=== PATIENT | female | born 1955 | race Two or more races ===

== ENCOUNTER 2016-06-14 22:58 | Inpatient (IN) | payer MEDICAID, OTHER ==
[~2016-06-14] VITALS: Ht 172.7 cm; Wt 95.3 kg
[2016-06-14] MEDS ORDERED: CATAPRES0.1 MG ORAL (23:06)
[2016-06-14] MEDS ORDERED: CARVEDILOL3.125 MG ORAL (23:06)
[2016-06-14] MEDS ORDERED: DIGOXIN0.25 MG/5 GT (23:06)
[2016-06-14] MEDS ORDERED: FUROSEMIDE20 M1 ORAL (23:06)
[2016-06-14] MEDS ORDERED: Diltiazem 25mg/5ml IV ONE (23:30)
[2016-06-14 23:34] VITALS: BP 151/111
[2016-06-14 23:36] LABS: BASOPHILS % (AUTO) 1.2 % (0.0-2.0); EOSINOPHILS % (AUTO) 1.5 % (0.0-3.0); LYMPHOCYTES % (AUTO) 24.7 % (20.0-45.0); MEAN CORPUSCULAR HEMOGLOBIN 24.4 PG (27.0-31.0); MEAN CORPUSCULAR HGB CONC 30.2 G/DL (32.0-36.0); MEAN CORPUSCULAR VOLUME 81 FL (80-99); MEAN PLATELET VOLUME 8.2 FL (6.5-10.1); MONOCYTES % (AUTO) 8.5 % (1.0-10.0); PLATELET COUNT 248 K/UL (150-450); RED CELL DISTRIBUTION WIDTH 17.7 % (11.6-14.8); WHITE BLOOD COUNT 5.6 K/UL (4.8-10.8)
[2016-06-14 23:52] LABS: ALANINE AMINOTRANSFERASE 23 U/L (3-33); ANION GAP 14 (5-15); ASPARTATE AMINO TRANSFERASE 19 U/L (5-40); CALCIUM 8.8 mg/dL (8.6-10.2); CARBON DIOXIDE 23 mEQ/L (20-30); CHLORIDE 103 mEQ/L (98-107); CREATININE 1.1 mg/dL (0.5-0.9); GLOMERULAR FILTRATION RATE 50.8 mL/min (>60); HEMOLYSIS 4; POTASSIUM 4.1 mEQ/L (3.4-4.9); SODIUM 140 mEQ/L (135-145); TOTAL PROTEIN 6.9 g/dL (6.6-8.7); TROPONIN I < 0.30 ng/mL (<=0.30)
[2016-06-15] VITALS (7 sets, daily range): BP systolic 137–155; BP diastolic 83–109
[2016-06-15 00:02] LABS: CKMB < 1.5 ng/mL (< 3.8)
[2016-06-15] MEDS ORDERED: Diltiazem 25mg/5ml IV ONE ×2 (01:15→03:45)
[2016-06-15] MEDS ORDERED: DuoNeb 0.5-3(2.5)mg/3ml neb HHN PRN (02:30)
[2016-06-15] MEDS ORDERED: Nitroglycerin Subl 0.4mg tab (Bottle Of 25) SL ONE (02:30)
--- NOTE | 2016-06-15 02:42 | Emergency Room Report ---
History of Present Illness General Chief Complaint: Chest Pain Source: Patient Present Illness HPI Patient is a 60-year-old female who presented for increased chest pain shortness of breath gradual onset of the past 2 days. The patient has a past history of atrial fibrillation and is currently taking Xarelto. The patient had no loss of consciousness. Allergies: Coded Allergies: No Known Allergies (Unverified , 06/14/16) Patient History Last Menstrual Period: n/a Reviewed Nursing Documentation: PMH: Agreed, PSxH: Agreed Nursing Documentation-PMH Past Medical History: No History, Except For Hx Hypertension: Yes Physical Exam Vital Signs Date Time Temp Pulse Resp B/P Pulse Ox O2 Delivery O2 Flow Rate FiO2 06/14/16 23:00 98.2 90 18 185/120 98 06/14/16 23:34 Nasal Cannula 2.0 Sp02 EP Interpretation: reviewed, normal General Appearance: normal inspection, well appearing, no apparent distress, alert, obese Head: atraumatic ENT: normal ENT inspection, hearing grossly normal, normal voice Neck: normal inspection, full range of motion, supple, no bony tend Respiratory: normal inspection, lungs clear, normal breath sounds, no respiratory distress, no retraction, no wheezing Cardiovascular #1: no edema, irregularly irregular Gastrointestinal: normal inspection, normal bowel sounds, non tender, soft, no guarding, no hernia Genitourinary: no CVA tenderness Musculoskeletal: normal inspection, back normal, normal range of motion Neurologic: normal inspection, alert, oriented x3, responsive, retail wireless associate III-XII nml as tested, speech normal Psychiatric: normal inspection, judgement/insight normal, mood/affect normal Skin: normal inspection, normal color, no rash Medical Decision Making Diagnostic Impression: Primary Impression: Atrial fibrillation with RVR Additional Impression: CHF (congestive heart failure) ER Course Patient presented for chest pain. Differential diagnosis included but was not limited to acute coronary syndrome, pulmonary embolism, pneumonia, aortic dissection, shingles, pneumothorax, aortic dissection, esophageal rupture, pericarditis. Because of complexity of patient's case laboratory testing and imaging studies were ordered. The chest x-ray one view interpreted by me showed cardiomegaly with vascular congestion consistent with CHF. Patient was noted to have EKG interpreted by me showed atrial fibrillation with a rate approximately 120 without PVCs or ectopy. There were no acute ST or T wave changes. The laboratory testing showed elevation of the Nitrate peptide was normal white blood count. Troponin was negative. Dr. Geller was contacted for inpatient management. Labs Test 06/14/16 23:22 White Blood Count 5.6 K/UL (4.8-10.8) Red Blood Count 4.70 M/UL (4.20-5.40) Hemoglobin 11.5 G/DL (12.0-16.0) Hematocrit 38.0 % (37.0-47.0) Mean Corpuscular Volume 81 FL (80-99) Mean Corpuscular Hemoglobin 24.4 PG (27.0-31.0) Mean Corpuscular Hemoglobin Concent 30.2 G/DL (32.0-36.0) Red Cell Distribution Width 17.7 % (11.6-14.8) Platelet Count 248 K/UL (150-450) Mean Platelet Volume 8.2 FL (6.5-10.1) Neutrophils (%) (Auto) 64.0 % (45.0-75.0) Lymphocytes (%) (Auto) 24.7 % (20.0-45.0) Monocytes (%) (Auto) 8.5 % (1.0-10.0) Eosinophils (%) (Auto) 1.5 % (0.0-3.0) Basophils (%) (Auto) 1.2 % (0.0-2.0) Sodium Level 140 mEQ/L (135-145) Potassium Level 4.1 mEQ/L (3.4-4.9) Chloride Level 103 mEQ/L (98-107) Carbon Dioxide Level 23 mEQ/L (20-30) Anion Gap 14 (5-15) Blood Urea Nitrogen 14 mg/dL (7-23) Creatinine 1.1 mg/dL (0.5-0.9) Estimat Glomerular Filtration Rate 50.8 mL/min (>60) Glucose Level 102 mg/dL (74-106) Calcium Level 8.8 mg/dL (8.6-10.2) Total Bilirubin 0.8 mg/dL (0.0-1.2) Aspartate Amino Transf (AST/SGOT) 19 U/L (5-40) Alanine Aminotransferase (ALT/SGPT) 23 U/L (3-33) Alkaline Phosphatase 67 U/L (35-104) Total Creatine Kinase 41 U/L (26-140) Creatine Kinase MB < 1.5 ng/mL (< 3.8) Creatine Kinase MB Relative Index 3.6 Troponin I < 0.30 ng/mL (<=0.30) Pro-B-Type Natriuretic Peptide 3127 pg/mL (0-125) Total Protein 6.9 g/dL (6.6-8.7) Albumin 3.6 g/dL (3.5-5.2) Globulin 3.3 g/dL Albumin/Globulin Ratio 1.0 (1.0-2.7) Chest X-Ray Diagnostic Results EP Interpretation: Yes Findings: no effusion, no pneumothorax, other - cardiomegaly Number of Views: 1 Last Vital Signs Date Time Temp Pulse Resp B/P Pulse Ox O2 Delivery O2 Flow Rate FiO2 06/15/16 02:32 147/108 06/15/16 02:16 98.2 125 28 98 Nasal Cannula 2.0 Status: improved Disposition: ADMITTED INPATIENT Condition: Serious Referrals: NOT CHOSEN IPA/,REFERRING (PCP) Keegan Enrique Jun 15, 2016 02:42
[2016-06-15 04:04] LABS: TROPONIN I < 0.30 ng/mL (<=0.30)
[2016-06-15 05:11] LABS: BASOPHILS % (AUTO) 0.9 % (0.0-2.0); EOSINOPHILS % (AUTO) 1.2 % (0.0-3.0); LYMPHOCYTES % (AUTO) 23.2 % (20.0-45.0); MEAN CORPUSCULAR HEMOGLOBIN 24.8 PG (27.0-31.0); MEAN CORPUSCULAR HGB CONC 30.8 G/DL (32.0-36.0); MEAN CORPUSCULAR VOLUME 80 FL (80-99); MONOCYTES % (AUTO) 7.9 % (1.0-10.0); NEUTROPHILS % (AUTO) 66.7 % (45.0-75.0); PLATELET COUNT 235 K/UL (150-450); RED BLOOD COUNT 4.78 M/UL (4.20-5.40); RED CELL DISTRIBUTION WIDTH 17.2 % (11.6-14.8); WHITE BLOOD COUNT 5.4 K/UL (4.8-10.8)
[2016-06-15 05:32] LABS: CALCIUM 8.9 mg/dL (8.6-10.2); CHOLESTEROL/HDL RATIO 3.2 (3.3-4.4); GLOMERULAR FILTRATION RATE 56.8 mL/min (>60); MAGNESIUM 1.9 mg/dL (1.7-2.5); POTASSIUM 4.1 mEQ/L (3.4-4.9)
[2016-06-15] MEDS: Aspirin Baby 81mg ORAL SCH (10:15)
[2016-06-15] MEDS: Heparin 5000 units/ml inj SUBQ SCH ×2 (10:19→10:22)
--- NOTE | 2016-06-15 10:38 | Diagnostic Imaging Report ---
Indication: SOB Technique: One view of the chest Comparison: none Findings: The heart is enlarged. There is mild interstitial congestion. No focal airspace consolidation Impression: Cardiomegaly with mild interstitial congestion
[2016-06-15 10:41] LABS: TROPONIN I < 0.30 ng/mL (<=0.30)
[2016-06-15] MEDS ORDERED: Digoxin 0.5mg/2ml Inj IVP ONE (13:30)
[2016-06-15] MEDS: Norco 10mg/325mg tab ORAL PRN ×2 (16:24→22:26)
[2016-06-15 16:38] LABS: TROPONIN I < 0.30 ng/mL (<=0.30)
--- NOTE | 2016-06-15 18:02 | Cardiac Electrophysiology PN ---
Subjective Subjective [id number] Objective Last 24 Hour Vital Signs Date Time Temp Pulse Resp B/P Pulse Ox O2 Delivery O2 Flow Rate FiO2 06/15/16 16:00 100.2 121 15 155/83 97 Nasal Cannula 1.5 06/15/16 13:29 132 06/15/16 10:22 132 150/96 06/15/16 10:17 132 06/15/16 10:16 132 150/96 06/15/16 09:30 98.1 66 26 150/96 97 Nasal Cannula 2.0 06/15/16 08:14 112 18 143/92 100 Nasal Cannula 2.0 06/15/16 08:00 112 06/15/16 06:35 98.2 125 26 151/98 100 Nasal Cannula 2.0 06/15/16 04:38 98.2 120 24 144/109 99 Nasal Cannula 2.0 06/15/16 03:48 144 138/106 06/15/16 02:32 147/108 06/15/16 02:16 98.2 125 28 147/108 98 Nasal Cannula 2.0 06/15/16 01:29 135 161/105 06/15/16 01:03 118 28 Nasal Cannula 2.0 06/15/16 01:00 98.2 118 28 137/93 97 Nasal Cannula 2.0 06/14/16 23:34 98.2 138 23 151/111 98 Nasal Cannula 2.0 06/14/16 23:27 120 151/111 06/14/16 23:00 98.2 90 18 185/120 98 Intake and Output 06/14/16 06/15/16 18:59 06:59 Output Total 1125 ml Balance -1125 ml Output Urine Total 1125 ml # Voids 4 Laboratory Tests Test 06/14/16 23:22 06/15/16 03:20 06/15/16 04:15 06/15/16 10:15 White Blood Count 5.6 K/UL (4.8-10.8) 5.4 K/UL (4.8-10.8) Red Blood Count 4.70 M/UL (4.20-5.40) 4.78 M/UL (4.20-5.40) Hemoglobin 11.5 G/DL (12.0-16.0) L 11.8 G/DL (12.0-16.0) L Hematocrit 38.0 % (37.0-47.0) 38.4 % (37.0-47.0) Mean Corpuscular Volume 81 FL (80-99) 80 FL (80-99) Mean Corpuscular Hemoglobin 24.4 PG (27.0-31.0) L 24.8 PG (27.0-31.0) L Mean Corpuscular Hemoglobin Concent 30.2 G/DL (32.0-36.0) L 30.8 G/DL (32.0-36.0) L Red Cell Distribution Width 17.7 % (11.6-14.8) H 17.2 % (11.6-14.8) H Platelet Count 248 K/UL (150-450) 235 K/UL (150-450) Mean Platelet Volume 8.2 FL (6.5-10.1) 8.0 FL (6.5-10.1) Neutrophils (%) (Auto) 64.0 % (45.0-75.0) 66.7 % (45.0-75.0) Lymphocytes (%) (Auto) 24.7 % (20.0-45.0) 23.2 % (20.0-45.0) Monocytes (%) (Auto) 8.5 % (1.0-10.0) 7.9 % (1.0-10.0) Eosinophils (%) (Auto) 1.5 % (0.0-3.0) 1.2 % (0.0-3.0) Basophils (%) (Auto) 1.2 % (0.0-2.0) 0.9 % (0.0-2.0) Sodium Level 140 mEQ/L (135-145) 144 mEQ/L (135-145) Potassium Level 4.1 mEQ/L (3.4-4.9) 4.1 mEQ/L (3.4-4.9) Chloride Level 103 mEQ/L (98-107) 105 mEQ/L (98-107) Carbon Dioxide Level 23 mEQ/L (20-30) 24 mEQ/L (20-30) Anion Gap 14 (5-15) 15 (5-15) Blood Urea Nitrogen 14 mg/dL (7-23) 13 mg/dL (7-23) Creatinine 1.1 mg/dL (0.5-0.9) H 1.0 mg/dL (0.5-0.9) H Estimat Glomerular Filtration Rate 50.8 mL/min (>60) 56.8 mL/min (>60) Glucose Level 102 mg/dL (74-106) 92 mg/dL (74-106) Calcium Level 8.8 mg/dL (8.6-10.2) 8.9 mg/dL (8.6-10.2) Total Bilirubin 0.8 mg/dL (0.0-1.2) Aspartate Amino Transf (AST/SGOT) 19 U/L (5-40) Alanine Aminotransferase (ALT/SGPT) 23 U/L (3-33) Alkaline Phosphatase 67 U/L (35-104) Total Creatine Kinase 41 U/L (26-140) Creatine Kinase MB < 1.5 ng/mL (< 3.8) Creatine Kinase MB Relative Index 3.6 Troponin I < 0.30 ng/mL (<=0.30) < 0.30 ng/mL (<=0.30) < 0.30 ng/mL (<=0.30) Pro-B-Type Natriuretic Peptide 3127 pg/mL (0-125) H 3208 pg/mL (0-125) H Total Protein 6.9 g/dL (6.6-8.7) Albumin 3.6 g/dL (3.5-5.2) Globulin 3.3 g/dL Albumin/Globulin Ratio 1.0 (1.0-2.7) Magnesium Level 1.9 mg/dL (1.7-2.5) Triglycerides Level 142 mg/dL (< 150) Cholesterol Level 178 mg/dL (< 200) LDL Cholesterol 95 mg/dL (60-99) HDL Cholesterol 55 mg/dL (> 60) Cholesterol/HDL Ratio 3.2 (3.3-4.4) L Test 06/15/16 15:30 Troponin I < 0.30 ng/mL (<=0.30) LARS MARSHALL Jun 15, 2016 18:02
--- NOTE | 2016-06-15 19:33 | History and Physical ---
History of Present Illness General Date patient seen: Jun 15, 2016 Reason for Hospitalization: Chest Pain Present Illness HPI This is a 60 yr AA female who presented to the ED with the complaint of chest pain, tightness and worsening SOB x 2 days. She stated that she has been in and out the hospital every other day for the past year for the same problem. In ED, She was found to have a blood pressure of 185/120, also had atrial fibrillation with rapid ventricular response with heart rate going up to 157 in the tele monitor. History includes HTN, CHF, AFIB on xarelto. Denies fever, loss of consciousness, nausea or vomiting. Allergies: Coded Allergies: No Known Allergies (Unverified , 06/14/16) Medication History Scheduled Carvedilol* (Carvedilol*), 3.125 MG ORAL EVERY 12 HOURS, (Reported) Clonidine Hcl* (Catapres*), 0.1 MG ORAL EVERY 6 HOURS, (Reported) Digoxin* (Digoxin*), 0.25 MG GT DAILY, (Reported) Furosemide* (Lasix*), 20 MG ORAL DAILY, (Reported) Patient History Healthcare decision maker Resuscitation status Full Code Advanced Directive on File No Past Medical/Surgical History Past Medical/Surgical History: (1) HTN (hypertension) (2) Afib (3) CHF (congestive heart failure) Social History Social History: (1) Does not smoke (2) Social alcohol use (3) No illicit drug use (4) Secondhand smoke exposure Review of Systems Constitutional: Reports: weakness Eye: Denies: acuity changes, blurred vision, discharge, double vision, eye pain , no symptoms, nose congestion, nose pain, other, see HPI, tearing ENT: Denies: ear discharge, ear pain, hearing loss, mouth pain, nasal discharge , no symptoms, nose congestion, nose pain, other, see HPI, throat pain, throat swelling Respiratory: Reports: shortness of breath Cardiovascular: Reports: chest pain Gastrointestinal: Denies: abdominal pain, constipation, diarrhea, hematemesis, melena, nausea, no symptoms, other, see HPI, vomiting Genitourinary: Denies: discharge, dysuria, frequency, hematuria, incontinence, no symptoms, other, pain, retention, see HPI, urgency, vag bleed/dc Musculoskeletal: Denies: back pain, gout, joint pain, joint swelling, muscle pain, muscle stiffness, no symptoms, other, see HPI Skin: Denies: change in color, change in hair/nails, dryness, lesions, no symptoms, other, rash, see HPI Psychiatric: Denies: HI, SI, anxiety, depressed feelings, emotional problems, hallucinations, no symptoms, other, prior hx, see HPI Neurological: Denies: dizziness, focal weakness, headache, no symptoms, numbness, other, paresthesia, see HPI, seizure, syncope, tingling, tremors Endocrine: Denies: excessive sweating, flushing, increased thirst, increased urine, intolerance to temperature, no symptoms, other, see HPI, unexplained weight loss Hematologic/Lymphatic: Denies: anemia, blood clots, diathesis, easy bleeding, easy bruising, no symptoms, other, see HPI, swollen glands Physical Exam General Appearance: no apparent distress, alert Lines, tubes and drains: peripheral HEENT: normocephalic, atraumatic Neck: non-tender, normal alignment, supple, normal inspection Respiratory/Chest: no respiratory distress, decreased breath sounds Cardiovascular/Chest: normal rate, regular rhythm, no JVD Abdomen: non tender, soft, no organomegaly, no mass Extremities: normal range of motion, non-tender, normal inspection, no calf tenderness, normal capillary refill Skin Exam: normal pigmentation, warm/dry Neurologic: alert, oriented x 3, responsive, normal mood/affect Last 24 Hour Vital Signs Date Time Temp Pulse Resp B/P Pulse Ox O2 Delivery O2 Flow Rate FiO2 06/15/16 17:23 99.0 06/15/16 16:00 100.2 121 15 155/83 97 Nasal Cannula 1.5 06/15/16 13:29 132 06/15/16 10:22 132 150/96 06/15/16 10:17 132 06/15/16 10:16 132 150/96 06/15/16 09:30 98.1 66 26 150/96 97 Nasal Cannula 2.0 06/15/16 08:14 112 18 143/92 100 Nasal Cannula 2.0 06/15/16 08:00 112 06/15/16 06:35 98.2 125 26 151/98 100 Nasal Cannula 2.0 06/15/16 04:38 98.2 120 24 144/109 99 Nasal Cannula 2.0 06/15/16 03:48 144 138/106 06/15/16 02:32 147/108 06/15/16 02:16 98.2 125 28 147/108 98 Nasal Cannula 2.0 06/15/16 01:29 135 161/105 06/15/16 01:03 118 28 Nasal Cannula 2.0 06/15/16 01:00 98.2 118 28 137/93 97 Nasal Cannula 2.0 06/14/16 23:34 98.2 138 23 151/111 98 Nasal Cannula 2.0 06/14/16 23:27 120 151/111 06/14/16 23:00 98.2 90 18 185/120 98 Intake and Output 06/14/16 06/15/16 19:00 07:00 Output Total 1125 ml Balance -1125 ml Output Urine Total 1125 ml # Voids 4 Laboratory Tests Test 06/14/16 23:22 06/15/16 03:20 06/15/16 04:15 06/15/16 10:15 White Blood Count 5.6 K/UL (4.8-10.8) 5.4 K/UL (4.8-10.8) Red Blood Count 4.70 M/UL (4.20-5.40) 4.78 M/UL (4.20-5.40) Hemoglobin 11.5 G/DL (12.0-16.0) L 11.8 G/DL (12.0-16.0) L Hematocrit 38.0 % (37.0-47.0) 38.4 % (37.0-47.0) Mean Corpuscular Volume 81 FL (80-99) 80 FL (80-99) Mean Corpuscular Hemoglobin 24.4 PG (27.0-31.0) L 24.8 PG (27.0-31.0) L Mean Corpuscular Hemoglobin Concent 30.2 G/DL (32.0-36.0) L 30.8 G/DL (32.0-36.0) L Red Cell Distribution Width 17.7 % (11.6-14.8) H 17.2 % (11.6-14.8) H Platelet Count 248 K/UL (150-450) 235 K/UL (150-450) Mean Platelet Volume 8.2 FL (6.5-10.1) 8.0 FL (6.5-10.1) Neutrophils (%) (Auto) 64.0 % (45.0-75.0) 66.7 % (45.0-75.0) Lymphocytes (%) (Auto) 24.7 % (20.0-45.0) 23.2 % (20.0-45.0) Monocytes (%) (Auto) 8.5 % (1.0-10.0) 7.9 % (1.0-10.0) Eosinophils (%) (Auto) 1.5 % (0.0-3.0) 1.2 % (0.0-3.0) Basophils (%) (Auto) 1.2 % (0.0-2.0) 0.9 % (0.0-2.0) Sodium Level 140 mEQ/L (135-145) 144 mEQ/L (135-145) Potassium Level 4.1 mEQ/L (3.4-4.9) 4.1 mEQ/L (3.4-4.9) Chloride Level 103 mEQ/L (98-107) 105 mEQ/L (98-107) Carbon Dioxide Level 23 mEQ/L (20-30) 24 mEQ/L (20-30) Anion Gap 14 (5-15) 15 (5-15) Blood Urea Nitrogen 14 mg/dL (7-23) 13 mg/dL (7-23) Creatinine 1.1 mg/dL (0.5-0.9) H 1.0 mg/dL (0.5-0.9) H Estimat Glomerular Filtration Rate 50.8 mL/min (>60) 56.8 mL/min (>60) Glucose Level 102 mg/dL (74-106) 92 mg/dL (74-106) Calcium Level 8.8 mg/dL (8.6-10.2) 8.9 mg/dL (8.6-10.2) Total Bilirubin 0.8 mg/dL (0.0-1.2) Aspartate Amino Transf (AST/SGOT) 19 U/L (5-40) Alanine Aminotransferase (ALT/SGPT) 23 U/L (3-33) Alkaline Phosphatase 67 U/L (35-104) Total Creatine Kinase 41 U/L (26-140) Creatine Kinase MB < 1.5 ng/mL (< 3.8) Creatine Kinase MB Relative Index 3.6 Troponin I < 0.30 ng/mL (<=0.30) < 0.30 ng/mL (<=0.30) < 0.30 ng/mL (<=0.30) Pro-B-Type Natriuretic Peptide 3127 pg/mL (0-125) H 3208 pg/mL (0-125) H Total Protein 6.9 g/dL (6.6-8.7) Albumin 3.6 g/dL (3.5-5.2) Globulin 3.3 g/dL Albumin/Globulin Ratio 1.0 (1.0-2.7) Magnesium Level 1.9 mg/dL (1.7-2.5) Triglycerides Level 142 mg/dL (< 150) Cholesterol Level 178 mg/dL (< 200) LDL Cholesterol 95 mg/dL (60-99) HDL Cholesterol 55 mg/dL (> 60) Cholesterol/HDL Ratio 3.2 (3.3-4.4) L Test 06/15/16 15:30 Troponin I < 0.30 ng/mL (<=0.30) Height (Feet): 5 Height (Inches): 8.00 Weight (Pounds): 210 Medications Current Medications Medications (Trade) Dose Ordered Sig/Kishor Route PRN Reason Start Time Stop Time Status Last Admin Dose Admin Acetaminophen (Tylenol) 650 mg Q4H PRN ORAL Mild Pain (Pain Scale 1-3) 06/15/16 02:30 07/15/16 02:29 Acetaminophen/ Hydrocodone Bitart (Erwinna 10/325) 1 ea Q6H PRN ORAL MODERATE PAIN 06/15/16 16:00 06/22/16 15:59 06/15/16 16:24 Albuterol/ Ipratropium (DuoNeb 0.5-3(2.5)mg/3ml) 3 ml Q4H PRN HHN Shortness of Breath 06/15/16 02:30 06/20/16 02:29 Aspirin (ASA) 81 mg DAILY ORAL 06/15/16 09:00 07/15/16 08:59 06/15/16 10:15 Carvedilol (Coreg) 25 mg EVERY 12 HOURS ORAL 06/15/16 21:00 07/15/16 20:59 Clonidine HCl (Catapres) 0.1 mg Q6H PRN ORAL For High Blood Pressure 06/15/16 02:30 07/15/16 02:29 Dextrose (Dextrose 50%) STAT PRN IV Hypoglycemia 06/15/16 02:30 07/15/16 02:29 Digoxin (Lanoxin) 0.25 mg DAILY ORAL 06/15/16 09:00 07/15/16 08:59 06/15/16 10:17 Furosemide (Lasix) 40 mg DAILY IV 06/15/16 09:00 07/15/16 08:59 06/15/16 10:15 Morphine Sulfate (Morphine Sulfate) 2 mg Q4H PRN IVP Severe Pain (Pain Scale 7-10) 06/15/16 02:30 06/22/16 02:29 Ondansetron HCl (Zofran) 4 mg Q6H PRN IVP Nausea & Vomiting 06/15/16 02:30 07/15/16 02:29 Rivaroxaban (Xarelto) 20 mg DAILY ORAL 06/16/16 09:00 07/16/16 08:59 Objective Narrative XRAY Chest 1v Indication: SOB Technique: One view of the chest Comparison: none Findings: The heart is enlarged. There is mild interstitial congestion. No focal airspace consolidation Impression: Cardiomegaly with mild interstitial congestion Assessment/Plan Status: stable Assessment/Plan Cardiology consult, will f/u with rec Continue lasix Monitor Vitals Monitor HR Strict I&O Cardiac diet Monitor counts Pain management Sarah Kaba N.P. Jun 15, 2016 19:33
[2016-06-15] MEDS ORDERED: Carvedilol 12.5mg tab ONE (21:05)
[2016-06-15] MEDS ORDERED: Carvedilol 25mg Tab ORAL SCH (21:16)
[2016-06-15] MEDS: Carvedilol 25mg Tab ORAL SCH (21:36)
--- NOTE | 2016-06-15 22:48 | Consultation ---
DATE OF CONSULTATION: 06/15/2016 CARDIOLOGY CONSULTATION: CONSULTING PHYSICIAN: Dakota Brewer M.D. REFERRING PHYSICIAN: Manjinder Geller M.D. REASON FOR CONSULTATION: hypertension and atrial fibrillation with rapid ventricular response. HISTORY OF PRESENT ILLNESS: The patient is a 60-year-old lady with history of hypertension, presents to the emergency room complaining of shortness of breath, chest pain, and palpitation for two days. The patient is already on Xarelto for anticoagulation. The patient denies any syncope or presyncopal symptoms. The patient came to the emergency room. She was found to have a blood pressure of 185/120. The patient also had atrial fibrillation with rapid ventricular response with heart rate going up to 157 in the telemetry. A Cardiology consultation was obtained for further evaluation and management. PAST MEDICAL HISTORY: 1. Hypertension. 2. Paroxysmal atrial fibrillation. FAMILY HISTORY: Noncontributory. SOCIAL HISTORY: She lives at home. Does not smoke or drink alcohol. REVIEW OF SYSTEMS: Review of systems was performed and was negative other than what was mentioned in the history of present illness. PHYSICAL EXAMINATION: VITAL SIGNS: Blood pressure is 155/83, pulse 120 to 150s, respirations 18, and temperature 100.2 degrees. HEENT: Head and Neck shows no JVD. LUNGS: Clear. CARDIOVASCULAR: Shows regular S1 and S2 with no gallop or murmur. ABDOMEN: Soft. EXTREMITIES: No pitting edema. LABORATORY STUDIES: White count is 5.4, hemoglobin 11.8, hematocrit 38.4, and platelets 235,000. Sodium is 144, potassium 4.1, BUN 13, and creatinine 1. Troponins are negative x4. BNP is 3208. DIAGNOSTIC DATA: Her echocardiogram showed an ejection fraction of 60% with moderate mitral regurgitation and tricuspid regurgitation. ASSESSMENT AND PLAN: 1. Atrial fibrillation with rapid ventricular response. I already gave the patient 0.25 mg intravenous digoxin, but she continues to be tachycardic. I increased the Coreg to 25 mg b.i.d. and if the heart rate is not controlled, I will transfer the patient to ICU to start the patient on Cardizem drip. In the meantime, the patient is on Xarelto for anticoagulation purposes. Discontinue subcutaneous heparin. 2. Congestive heart failure. We will continue Lasix 40 mg IV daily. Continue the patient on Coreg that will beneficial for atrial fibrillation as well. Her ejection fraction is normal so is diastolic dysfunction related to atrial fibrillation with rapid ventricular response. 3. hypertension. Continue Coreg to control rapid ventricular response during atrial fibrillation. Thank you very much, Dr. Geller for allowing me to participate in the care of this patient. Please do not hesitate to contact me for any questions regarding my evaluation. Dakota Brewer M.D. DR: Migel JOB#: [id number] CC:
[2016-06-16] VITALS (7 sets, daily range): BP systolic 103–164; BP diastolic 56–105
[2016-06-16 06:04] LABS: CALCIUM 8.3 mg/dL (8.6-10.2); CREATININE 1.2 mg/dL (0.5-0.9)
[2016-06-16 06:11] LABS: THYROID STIMULATING HORMONE 1.53 uIU/mL (0.300-4.500)
[2016-06-16 06:32] LABS: DIGOXIN 0.9 ng/mL (0.5-2.0)
[2016-06-16] MEDS: Carvedilol 25mg Tab ORAL SCH ×2 (08:58→21:00)
[2016-06-16] MEDS: Norco 10mg/325mg tab ORAL PRN (08:58)
[2016-06-16] MEDS: Xarelto 10mg tab ORAL SCH (08:59)
[2016-06-16] MEDS: Aspirin Baby 81mg ORAL SCH (08:59)
[2016-06-16] MEDS: Morphine Sulfate 2mg/ml Inj IVP PRN ×2 (12:08→18:42)
--- NOTE | 2016-06-16 15:58 | Cardiac Electrophysiology PN ---
Assessment/Plan Assessment/Plan 1. Atrial fibrillation with rapid ventricular response.Better on Dig 0.25 daily , Coreg 25 mg b.i.d. and Xarelto for anticoagulation purposes. 2. Congestive heart failure. Coreg and Lasix 40 mg IV daily. Her ejection fraction is normal so is diastolic dysfunction 3. Hypertension. Continue Coreg DW RN. Subjective Subjective Feeling better. No chest pain. Remained in atrial fib but 105. Objective Last 24 Hour Vital Signs Date Time Temp Pulse Resp B/P Pulse Ox O2 Delivery O2 Flow Rate FiO2 06/16/16 12:00 97.9 105 21 121/75 94 Room Air 06/16/16 08:59 106 06/16/16 08:58 106 138/82 06/16/16 08:00 124 06/16/16 08:00 98.7 106 22 138/82 95 Room Air 06/16/16 04:01 112 06/16/16 04:00 99.0 109 18 145/103 95 Nasal Cannula 1.5 06/16/16 01:13 164/105 06/16/16 01:11 98.2 94 20 164/105 95 Nasal Cannula 1.5 06/16/16 00:00 98.2 94 20 164/105 95 Nasal Cannula 1.5 06/15/16 23:51 118 06/15/16 21:36 116 143/107 06/15/16 20:00 99.3 116 15 143/107 98 Nasal Cannula 1.5 06/15/16 20:00 126 06/15/16 17:23 99.0 06/15/16 16:00 100.2 121 15 155/83 97 Nasal Cannula 1.5 06/15/16 16:00 132 Intake and Output 06/15/16 06/16/16 19:00 07:00 Intake Total 250 ml 50 ml Balance 250 ml 50 ml Intake Oral 250 ml 50 ml # Voids 1 4 # Bowel Movements 1 Laboratory Tests Test 06/16/16 04:20 Sodium Level 138 mEQ/L (135-145) Potassium Level 4.0 mEQ/L (3.4-4.9) Chloride Level 100 mEQ/L (98-107) Carbon Dioxide Level 25 mEQ/L (20-30) Anion Gap 13 (5-15) Blood Urea Nitrogen 14 mg/dL (7-23) Creatinine 1.2 mg/dL (0.5-0.9) H Estimat Glomerular Filtration Rate 46.0 mL/min (>60) Glucose Level 85 mg/dL (74-106) Calcium Level 8.3 mg/dL (8.6-10.2) L Pro-B-Type Natriuretic Peptide 3468 pg/mL (0-125) H Thyroid Stimulating Hormone (TSH) 1.530 uIU/mL (0.300-4.500) Free Thyroxine 1.06 ng/dL (0.86-1.85) Digoxin Level 0.9 ng/mL (0.5-2.0) Objective HEENT: no JVD. LUNGS: Clear. CARDIOVASCULAR: Irregular S1 and S2 with no gallop or murmur. ABDOMEN: Soft. EXTREMITIES: No pitting edema. LARS MARSHALL Jun 16, 2016 15:58
--- NOTE | 2016-06-16 18:25 | General Progress Note ---
Assessment/Plan Problem List: (1) Chest pain ICD Codes: R07.9 - Chest pain, unspecified SNOMED: 44989246 (2) CHF (congestive heart failure) ICD Codes: I50.9 - Heart failure, unspecified SNOMED: 54977367 (3) Atrial fibrillation with RVR ICD Codes: I48.91 - Unspecified atrial fibrillation SNOMED: 612649083708569 (4) HTN (hypertension) ICD Codes: I10 - Essential (primary) hypertension SNOMED: 85265973 Assessment/Plan Stable BP, AFIB, - cardio f/u Pain management with morphine and norco BNP - worsening - will f/u with cardio rec AM labs Subjective Date patient seen: Jun 16, 2016 Constitutional: Reports: weakness HEENT: Denies: blurred vision, double vision, ear discharge, ear pain, eye pain , mouth pain, mouth swelling, no symptoms, nose congestion, nose pain, other, tearing, throat pain, throat swelling Cardiovascular: Reports: chest pain Respiratory: Denies: SOB at rest, SOB with excertion, cough, no symptoms, orthopnea, other, shortness of breath, sputum, stridor, wheezing Gastrointestinal/Abdominal: Denies: abdomen distended, abdominal pain, black stools, blood in stool, constipated, diarrhea, difficulty swallowing, nausea, no symptoms, other, poor appetite, poor fluid intake, rectal bleeding, tarry stools, vomiting Genitourinary: Denies: burning, discharge, flank pain, frequency, hematuria, incontinence, no symptoms, other, pain, urgency Neurologic/Psychiatric: Denies: anxiety, depressed, emotional problems, headache, no symptoms, numbness, other, paresthesia, pre-existing deficit, seizure, tingling, tremors, weakness Endocrine: Denies: excessive sweating, flushing, increased hunger, increased thirst, increased urine, intolerance to cold, intolerance to heat, no symptoms, other, unexplained weight gain, unexplained weight loss Hematologic/Lymphatic: Denies: anemia, easy bleeding, easy bruising, no symptoms, other Allergies: Coded Allergies: No Known Allergies (Unverified , 06/14/16) Subjective Complains of chest discomfort and congestion and difficulty walking due to OA Objective Last 24 Hour Vital Signs Date Time Temp Pulse Resp B/P Pulse Ox O2 Delivery O2 Flow Rate FiO2 06/16/16 16:00 97.7 106 27 118/84 98 Nasal Cannula 2.0 06/16/16 16:00 100 06/16/16 12:00 97.9 105 21 121/75 94 Room Air 06/16/16 08:59 106 06/16/16 08:58 106 138/82 06/16/16 08:00 124 06/16/16 08:00 98.7 106 22 138/82 95 Room Air 06/16/16 04:01 112 06/16/16 04:00 99.0 109 18 145/103 95 Nasal Cannula 1.5 06/16/16 01:13 164/105 06/16/16 01:11 98.2 94 20 164/105 95 Nasal Cannula 1.5 06/16/16 00:00 98.2 94 20 164/105 95 Nasal Cannula 1.5 06/15/16 23:51 118 06/15/16 21:36 116 143/107 06/15/16 20:00 99.3 116 15 143/107 98 Nasal Cannula 1.5 06/15/16 20:00 126 Intake and Output 06/15/16 06/16/16 19:00 07:00 Intake Total 250 ml 50 ml Balance 250 ml 50 ml Intake Oral 250 ml 50 ml # Voids 1 4 # Bowel Movements 1 Laboratory Tests 06/16/16 04:20: Sodium Level 138, Potassium Level 4.0, Chloride Level 100, Carbon Dioxide Level 25, Anion Gap 13, Blood Urea Nitrogen 14, Creatinine 1.2H, Estimat Glomerular Filtration Rate 46.0, Glucose Level 85, Calcium Level 8.3L, Pro-B-Type Natriuretic Peptide 3468H, Thyroid Stimulating Hormone (TSH) 1.530, Free Thyroxine 1.06, Digoxin Level 0.9 Height (Feet): 5 Height (Inches): 8.00 Weight (Pounds): 210 General Appearance: no apparent distress, alert EENT: normal ENT inspection Neck: non-tender, normal alignment, supple, normal inspection Cardiovascular: normal rate, regular rhythm, no JVD Respiratory/Chest: normal breath sounds, no respiratory distress Abdomen: non tender, soft, no organomegaly, no mass Pelvis: normal external exam Extremities: normal range of motion, normal inspection Neurologic: alert, oriented x 3, responsive, normal mood/affect Skin: normal pigmentation, warm/dry Sarah Kaba N.P. Jun 16, 2016 18:25
[2016-06-17 00:08] VITALS: BP 129/75
[2016-06-17] MEDS: Morphine Sulfate 2mg/ml Inj IVP PRN ×3 (01:07→18:46)
[2016-06-17 04:48] VITALS: BP_SYST 149; BP_SYST 161; BP_DIAS 97; BP_DIAS 98
[2016-06-17 06:47] LABS: BASOPHILS % (AUTO) 2.3 % (0.0-2.0); LYMPHOCYTES % (AUTO) 33.3 % (20.0-45.0); MEAN CORPUSCULAR HEMOGLOBIN 25.5 PG (27.0-31.0); MEAN CORPUSCULAR HGB CONC 31.5 G/DL (32.0-36.0); MEAN CORPUSCULAR VOLUME 81 FL (80-99); MEAN PLATELET VOLUME 8.6 FL (6.5-10.1); MONOCYTES % (AUTO) 15.1 % (1.0-10.0); NEUTROPHILS % (AUTO) 47.3 % (45.0-75.0); PLATELET COUNT 203 K/UL (150-450); RED BLOOD COUNT 4.52 M/UL (4.20-5.40); RED CELL DISTRIBUTION WIDTH 17.5 % (11.6-14.8); WHITE BLOOD COUNT 3.5 K/UL (4.8-10.8)
[2016-06-17 06:58] LABS: CALCIUM 8.4 mg/dL (8.6-10.2); GLOMERULAR FILTRATION RATE 56.8 mL/min (>60); POTASSIUM 3.8 mEQ/L (3.4-4.9)
[2016-06-17 08:05] VITALS: BP 149/96
[2016-06-17] MEDS: Xarelto 10mg tab ORAL SCH (09:06)
[2016-06-17] MEDS: Carvedilol 25mg Tab ORAL SCH ×2 (09:06→20:10)
[2016-06-17] MEDS: Aspirin Baby 81mg ORAL SCH (09:07)
--- NOTE | 2016-06-17 11:06 | Nephrology Progress Note ---
Assessment/Plan Problem List: (1) Atrial fibrillation with RVR (2) Chest pain (3) CHF (congestive heart failure) (4) HTN (hypertension) Plan f/u recs per cardio. cont current management. cont diuresis. monitor renal function and lytes. check I/O's. d/c planning soon. Subjective Subjective no new c/o. still in afib with rate controlled in 80's. Objective Objective Last 24 Hour Vital Signs Date Time Temp Pulse Resp B/P Pulse Ox O2 Delivery O2 Flow Rate FiO2 06/17/16 09:34 80 20 100 Nasal Cannula 2.0 28 06/17/16 09:26 78 20 Nasal Cannula 2.0 28 06/17/16 09:20 78 20 100 Nasal Cannula 2.0 28 06/17/16 09:20 78 20 Nasal Cannula 2.0 28 06/17/16 09:07 73 06/17/16 09:06 73 149/96 06/17/16 08:05 97.3 73 18 149/96 98 Room Air 06/17/16 08:00 103 06/17/16 04:48 97.9 93 20 149/97 97 Room Air 06/17/16 03:47 110 06/17/16 00:08 97.7 82 21 129/75 94 Room Air 06/16/16 23:43 84 06/16/16 20:00 97.0 97 27 103/56 98 Nasal Cannula 2.0 06/16/16 20:00 96 06/16/16 19:12 97.7 06/16/16 16:00 97.7 106 27 118/84 98 Nasal Cannula 2.0 06/16/16 16:00 100 06/16/16 12:00 97.9 105 21 121/75 94 Room Air Intake and Output 06/16/16 06/17/16 19:00 07:00 Intake Total 220 ml Balance 220 ml Intake Oral 220 ml # Voids 3 2 Laboratory Tests 06/17/16 05:50: White Blood Count 3.5L, Red Blood Count 4.52, Hemoglobin 11.5L, Hematocrit 36.6L , Mean Corpuscular Volume 81, Mean Corpuscular Hemoglobin 25.5L, Mean Corpuscular Hemoglobin Concent 31.5L, Red Cell Distribution Width 17.5H, Platelet Count 203, Mean Platelet Volume 8.6, Neutrophils (%) (Auto) 47.3, Lymphocytes (%) (Auto) 33.3, Monocytes (%) (Auto) 15.1H, Eosinophils (%) (Auto) 2.0, Basophils (%) (Auto) 2.3H, Sodium Level 141, Potassium Level 3.8, Chloride Level 101, Carbon Dioxide Level 30, Anion Gap 10, Blood Urea Nitrogen 13, Creatinine 1.0H, Estimat Glomerular Filtration Rate 56.8, Glucose Level 82, Calcium Level 8.4L Height (Feet): 5 Height (Inches): 8.00 Weight (Pounds): 210 General Appearance: no apparent distress Cardiovascular: regularly irregular Respiratory/Chest: lungs clear Abdomen: non tender, soft Extremities: trace edema Neurologic: alert SARA LITTLEJOHN Jun 17, 2016 11:06
[2016-06-17 11:15] VITALS: BP 93/57
--- NOTE | 2016-06-17 14:27 | Cardiac Electrophysiology PN ---
Assessment/Plan Assessment/Plan 1. Atrial fibrillation with rapid ventricular response.Better on Dig 0.25 daily , Coreg 25 mg b.i.d.Continue Xarelto 20 for anticoagulation . 2. Congestive heart failure due to diastolic dysfunction with Nl EF. Coreg and Lasix 40 mg IV daily. on 3. Hypertension. Continue Coreg DW RN. OK to DC from cardiac standpoint. Subjective Subjective Feeling better. Atrial fib rate is better. No chest pain or SOB. Objective Last 24 Hour Vital Signs Date Time Temp Pulse Resp B/P Pulse Ox O2 Delivery O2 Flow Rate FiO2 06/17/16 12:00 97 06/17/16 11:15 97.2 79 18 93/57 100 Nasal Cannula 2.0 06/17/16 09:34 80 20 100 Nasal Cannula 2.0 28 06/17/16 09:26 78 20 Nasal Cannula 2.0 28 06/17/16 09:20 78 20 100 Nasal Cannula 2.0 28 06/17/16 09:20 78 20 Nasal Cannula 2.0 28 06/17/16 09:07 73 06/17/16 09:06 73 149/96 06/17/16 08:05 97.3 73 18 149/96 98 Room Air 06/17/16 08:00 103 06/17/16 04:48 97.9 93 20 149/97 97 Room Air 06/17/16 03:47 110 06/17/16 00:08 97.7 82 21 129/75 94 Room Air 06/16/16 23:43 84 06/16/16 20:00 97.0 97 27 103/56 98 Nasal Cannula 2.0 06/16/16 20:00 96 06/16/16 19:12 97.7 06/16/16 16:00 97.7 106 27 118/84 98 Nasal Cannula 2.0 06/16/16 16:00 100 Intake and Output 06/16/16 06/17/16 19:00 07:00 Intake Total 220 ml Balance 220 ml Intake Oral 220 ml # Voids 3 2 Laboratory Tests Test 06/17/16 05:50 White Blood Count 3.5 K/UL (4.8-10.8) L Red Blood Count 4.52 M/UL (4.20-5.40) Hemoglobin 11.5 G/DL (12.0-16.0) L Hematocrit 36.6 % (37.0-47.0) L Mean Corpuscular Volume 81 FL (80-99) Mean Corpuscular Hemoglobin 25.5 PG (27.0-31.0) L Mean Corpuscular Hemoglobin Concent 31.5 G/DL (32.0-36.0) L Red Cell Distribution Width 17.5 % (11.6-14.8) H Platelet Count 203 K/UL (150-450) Mean Platelet Volume 8.6 FL (6.5-10.1) Neutrophils (%) (Auto) 47.3 % (45.0-75.0) Lymphocytes (%) (Auto) 33.3 % (20.0-45.0) Monocytes (%) (Auto) 15.1 % (1.0-10.0) H Eosinophils (%) (Auto) 2.0 % (0.0-3.0) Basophils (%) (Auto) 2.3 % (0.0-2.0) H Sodium Level 141 mEQ/L (135-145) Potassium Level 3.8 mEQ/L (3.4-4.9) Chloride Level 101 mEQ/L (98-107) Carbon Dioxide Level 30 mEQ/L (20-30) Anion Gap 10 (5-15) Blood Urea Nitrogen 13 mg/dL (7-23) Creatinine 1.0 mg/dL (0.5-0.9) H Estimat Glomerular Filtration Rate 56.8 mL/min (>60) Glucose Level 82 mg/dL (74-106) Calcium Level 8.4 mg/dL (8.6-10.2) L Current Medications Medications (Trade) Dose Ordered Sig/Kishor Route PRN Reason Start Time Stop Time Status Last Admin Dose Admin Acetaminophen (Tylenol) 650 mg Q4H PRN ORAL Mild Pain (Pain Scale 1-3) 06/15/16 02:30 07/15/16 02:29 Acetaminophen/ Hydrocodone Bitart (Mary D 10/325) 1 ea Q6H PRN ORAL MODERATE PAIN 06/15/16 16:00 06/22/16 15:59 06/16/16 08:58 Albuterol/ Ipratropium (DuoNeb 0.5-3(2.5)mg/3ml) 3 ml Q4H PRN HHN Shortness of Breath 06/15/16 02:30 06/20/16 02:29 06/17/16 09:24 Aspirin (ASA) 81 mg DAILY ORAL 06/15/16 09:00 07/15/16 08:59 06/17/16 09:07 Carvedilol (Coreg) 25 mg EVERY 12 HOURS ORAL 06/15/16 22:00 07/15/16 21:59 06/17/16 09:06 Clonidine HCl (Catapres) 0.1 mg Q6H PRN ORAL For High Blood Pressure 06/15/16 02:30 07/15/16 02:29 06/16/16 01:13 Dextrose (Dextrose 50%) STAT PRN IV Hypoglycemia 06/15/16 02:30 07/15/16 02:29 Digoxin (Lanoxin) 0.25 mg DAILY ORAL 06/15/16 09:00 07/15/16 08:59 06/17/16 09:07 Furosemide (Lasix) 40 mg DAILY IV 06/15/16 09:00 07/15/16 08:59 06/17/16 09:07 Morphine Sulfate (Morphine Sulfate) 2 mg Q4H PRN IVP Severe Pain (Pain Scale 7-10) 06/15/16 02:30 06/22/16 02:29 06/17/16 06:33 Ondansetron HCl (Zofran) 4 mg Q6H PRN IVP Nausea & Vomiting 06/15/16 02:30 07/15/16 02:29 Rivaroxaban (Xarelto) 20 mg DAILY ORAL 06/16/16 09:00 07/16/16 08:59 06/17/16 09:06 Objective HEENT: no JVD. LUNGS: Clear. CARDIOVASCULAR: Irregular S1 and S2 with no gallop or murmur. ABDOMEN: Soft. EXTREMITIES: No pitting edema. LARS MARSHALL Jun 17, 2016 14:27
--- NOTE | 2016-06-17 14:38 | Cardiology Report ---
APPROVED REPORT EXAM: Two-dimensional and M-mode echocardiogram with Doppler and color Doppler. M-Mode DIMENSIONS IVSd1.5 (0.7-1.1cm)Left Atrium (MM)4.7 (1.6-4.0cm) LVDd3.7 (3.5-5.6cm)Aortic Root2.9 (2.0-3.7cm) PWd1.5 (0.7-1.1cm)Aortic Cusp Exc.1.5 (1.5-2.0cm) LVDs3.7 (2.5-4.0cm) PWs2.1 cm Technically difficult study due to poor acoustic windows and patient weight. POOR ENDOCARDIAL DEFINITION PRECLUDES ASSESSMENT OF WALL MOTION ABNROMALITY. Left ventricular ejection fraction estimated to be 60 %. Mild concentric left ventricular hypertrophy. Moderate left atrial enlargment. All right cardiac chamber sizes are within normal limits. MODERATE focal aortic valve sclerosis with adequate cusp excursion Mildy thickened mitral valve leaflets with normal excursion. Mild mitral annulus and aortic root calcification. Pulmonic valve not well visualized. Normal tricuspid valve structure. IVC dilated at 2.3cm with physiologic collapse. RAP 10mmHg. A color flow and spectral Doppler study was performed and revealed: No aortic regurgitation. Peak aortic valve gradient of 10mmHg and a mean of 7mmHg. Moderate mitral regurgitation. Mitral inflow velocities not indicated. Moderate tricuspid regurgitation. Tricuspid systolic velocities suggests peak right ventricular systolic pressure of 38 mmHg. Trace pulmonic regurgitation present.
[2016-06-17 16:00] VITALS: BP 111/83
[2016-06-17 20:00] VITALS: BP 126/80
[2016-06-18] VITALS (7 sets, daily range): BP systolic 106–161; BP diastolic 63–94
[2016-06-18 07:02] LABS: BASOPHILS % (AUTO) 1.3 % (0.0-2.0); EOSINOPHILS % (AUTO) 4.2 % (0.0-3.0); LYMPHOCYTES % (AUTO) 37.8 % (20.0-45.0); MEAN CORPUSCULAR HEMOGLOBIN 25.1 PG (27.0-31.0); MEAN CORPUSCULAR HGB CONC 31.3 G/DL (32.0-36.0); MEAN CORPUSCULAR VOLUME 80 FL (80-99); MEAN PLATELET VOLUME 8.2 FL (6.5-10.1); MONOCYTES % (AUTO) 12.2 % (1.0-10.0); NEUTROPHILS % (AUTO) 44.5 % (45.0-75.0); PLATELET COUNT 206 K/UL (150-450); RED BLOOD COUNT 4.72 M/UL (4.20-5.40); RED CELL DISTRIBUTION WIDTH 17.4 % (11.6-14.8); WHITE BLOOD COUNT 3.5 K/UL (4.8-10.8)
[2016-06-18 07:06] LABS: CALCIUM 8.5 mg/dL (8.6-10.2); GLOMERULAR FILTRATION RATE 56.8 mL/min (>60)
[2016-06-18] MEDS: Xarelto 10mg tab ORAL SCH (08:42)
[2016-06-18] MEDS: Aspirin Baby 81mg ORAL SCH (08:43)
[2016-06-18] MEDS: Carvedilol 25mg Tab ORAL SCH ×2 (08:43→21:13)
[2016-06-18] MEDS: Morphine Sulfate 2mg/ml Inj IVP PRN ×2 (15:31→21:18)
--- NOTE | 2016-06-18 22:32 | Nephrology Progress Note ---
Assessment/Plan Problem List: (1) Atrial fibrillation with RVR (2) CHF (congestive heart failure) (3) Chest pain (4) HTN (hypertension) Plan on xarelto. cont lasix. d/c plan for am. Subjective Subjective still in afib but rate controlled. no sob/cp. Objective Objective Last 24 Hour Vital Signs Date Time Temp Pulse Resp B/P Pulse Ox O2 Delivery O2 Flow Rate FiO2 06/18/16 21:13 98 132/94 06/18/16 20:00 97.9 98 21 132/94 100 Nasal Cannula 4.0 06/18/16 19:30 Nasal Cannula 2.0 28 06/18/16 19:29 100 Nasal Cannula 2.0 28 06/18/16 19:27 98 20 Nasal Cannula 2.0 28 06/18/16 16:00 97.0 80 24 133/76 100 4.0 06/18/16 16:00 87 06/18/16 11:40 97.3 83 18 106/63 100 Nasal Cannula 4.0 06/18/16 09:00 94 06/18/16 08:45 94 06/18/16 08:43 94 139/81 06/18/16 08:00 107 06/18/16 07:56 Nasal Cannula 2.0 25 06/18/16 07:55 72 20 Nasal Cannula 2.0 28 06/18/16 07:55 97.2 72 18 139/81 100 Nasal Cannula 4.0 06/18/16 07:54 98 Nasal Cannula 2.0 28 06/18/16 05:00 151/80 06/18/16 04:12 97.6 81 21 161/86 95 Room Air 06/18/16 03:57 92 06/18/16 00:28 98.4 63 18 144/92 97 Room Air 06/17/16 23:57 104 Intake and Output 06/17/16 06/18/16 19:00 07:00 Intake Total 480 ml 300 ml Output Total 1730 ml 1300 ml Balance -1250 ml -1000 ml Intake Oral 480 ml 300 ml Output Urine Total 1730 ml 1300 ml # Voids 1 Laboratory Tests 06/18/16 05:40: White Blood Count 3.5L, Red Blood Count 4.72, Hemoglobin 11.8L, Hematocrit 37.8 , Mean Corpuscular Volume 80, Mean Corpuscular Hemoglobin 25.1L, Mean Corpuscular Hemoglobin Concent 31.3L, Red Cell Distribution Width 17.4H, Platelet Count 206, Mean Platelet Volume 8.2, Neutrophils (%) (Auto) 44.5L, Lymphocytes (%) (Auto) 37.8, Monocytes (%) (Auto) 12.2H, Eosinophils (%) (Auto) 4.2H, Basophils (%) (Auto) 1.3, Sodium Level 138, Potassium Level 4.0, Chloride Level 98, Carbon Dioxide Level 30, Anion Gap 10, Blood Urea Nitrogen 11, Creatinine 1.0H, Estimat Glomerular Filtration Rate 56.8, Glucose Level 85, Calcium Level 8.5L, Pro-B-Type Natriuretic Peptide 1336H Height (Feet): 5 Height (Inches): 8.00 Weight (Pounds): 210 General Appearance: no apparent distress Cardiovascular: regularly irregular Respiratory/Chest: lungs clear Abdomen: non tender, soft Extremities: trace edema Neurologic: alert, oriented x 3 ZAYRA FITZPATRICK Jun 18, 2016 22:32
[2016-06-19 00:12] VITALS: BP 142/89
[2016-06-19 04:07] VITALS: BP 131/66
[2016-06-19 08:00] VITALS: BP 151/105
[2016-06-19] MEDS: Carvedilol 25mg Tab ORAL SCH (08:37)
[2016-06-19] MEDS: Xarelto 10mg tab ORAL SCH (08:38)
[2016-06-19] MEDS: Aspirin Baby 81mg ORAL SCH (08:38)
[2016-06-19 09:39] VITALS: BP 141/88
--- NOTE | 2016-06-19 10:37 | General Progress Note ---
Assessment/Plan Problem List: (1) Chest pain ICD Codes: R07.9 - Chest pain, unspecified SNOMED: 02993149 (2) CHF (congestive heart failure) ICD Codes: I50.9 - Heart failure, unspecified SNOMED: 38468146 (3) Atrial fibrillation with RVR ICD Codes: I48.91 - Unspecified atrial fibrillation SNOMED: 700025329137067 (4) HTN (hypertension) ICD Codes: I10 - Essential (primary) hypertension SNOMED: 32917539 Status: doing well, stable Assessment/Plan Stable BP, AFIB, - cardio f/u Pain management with morphine and norco BNP - worsening - will f/u with cardio rec AM labs Subjective Date patient seen: Jun 19, 2016 Constitutional: Denies: chills, diaphoresis, fever, malaise, no symptoms, other , weakness HEENT: Denies: blurred vision, double vision, ear discharge, ear pain, eye pain , mouth pain, mouth swelling, no symptoms, nose congestion, nose pain, other, tearing, throat pain, throat swelling Cardiovascular: Denies: chest pain, edema, irregular heart rate, lightheadedness, no symptoms, other, palpitations, syncope Respiratory: Denies: SOB at rest, SOB with excertion, cough, no symptoms, orthopnea, other, shortness of breath, sputum, stridor, wheezing Gastrointestinal/Abdominal: Denies: abdomen distended, abdominal pain, black stools, blood in stool, constipated, diarrhea, difficulty swallowing, nausea, no symptoms, other, poor appetite, poor fluid intake, rectal bleeding, tarry stools, vomiting Genitourinary: Denies: burning, discharge, flank pain, frequency, hematuria, incontinence, no symptoms, other, pain, urgency Neurologic/Psychiatric: Denies: anxiety, depressed, emotional problems, headache, no symptoms, numbness, other, paresthesia, pre-existing deficit, seizure, tingling, tremors, weakness Endocrine: Denies: excessive sweating, flushing, increased hunger, increased thirst, increased urine, intolerance to cold, intolerance to heat, no symptoms, other, unexplained weight gain, unexplained weight loss Hematologic/Lymphatic: Denies: anemia, easy bleeding, easy bruising, no symptoms, other Allergies: Coded Allergies: No Known Allergies (Unverified , 12/28/16) Subjective DC home Continue meds as prescribed F/u with PCP Continue Xarelto Objective Last 24 Hour Vital Signs Date Time Temp Pulse Resp B/P Pulse Ox O2 Delivery O2 Flow Rate FiO2 06/19/16 09:39 18 141/88 95 Nasal Cannula 06/19/16 08:38 84 06/19/16 08:37 86 151/105 06/19/16 08:33 84 20 Nasal Cannula 2.0 28 06/19/16 08:33 99 Nasal Cannula 2.0 28 06/19/16 08:33 Nasal Cannula 2.0 28 06/19/16 08:00 97.7 86 20 151/105 98 Nasal Cannula 2.0 06/19/16 08:00 87 06/19/16 04:07 97.9 59 18 131/66 98 Nasal Cannula 2.0 06/19/16 04:00 85 06/19/16 00:12 97.4 76 19 142/89 95 Room Air 06/19/16 00:00 80 06/18/16 22:00 97.9 06/18/16 21:13 98 132/94 06/18/16 20:00 86 06/18/16 20:00 97.9 98 21 132/94 100 Nasal Cannula 4.0 06/18/16 19:30 Nasal Cannula 2.0 28 06/18/16 19:29 100 Nasal Cannula 2.0 28 06/18/16 19:27 98 20 Nasal Cannula 2.0 28 06/18/16 16:00 97.0 80 24 133/76 100 4.0 06/18/16 16:00 87 06/18/16 11:40 97.3 83 18 106/63 100 Nasal Cannula 4.0 Intake and Output 06/18/16 06/19/16 19:00 07:00 Intake Total 490 ml Output Total 1300 ml 800 ml Balance -810 ml -800 ml Intake Oral 490 ml Output Urine Total 1300 ml 800 ml # Bowel Movements 1 Height (Feet): 5 Height (Inches): 8.00 Weight (Pounds): 210 General Appearance: no apparent distress, alert EENT: PERRL/EOMI, normal ENT inspection, TMs normal Neck: normal alignment, supple Cardiovascular: normal rate, regular rhythm, no JVD Respiratory/Chest: normal breath sounds, no respiratory distress Abdomen: soft, no organomegaly, no mass, abnormal bowel sounds Pelvis: normal external exam Extremities: normal range of motion, non-tender, normal inspection, no calf tenderness Neurologic: alert, oriented x 3, responsive, normal mood/affect Skin: normal pigmentation, warm/dry Sarah Kaba N.P. Jun 19, 2016 10:37
[2016-06-19] MEDS ORDERED: METOPROLOL TAR100 MG ORAL (10:41)
[2016-06-19] MEDS ORDERED: LIPITOR80 MG ORAL (10:41)
[2016-06-19] MEDS ORDERED: XARELTO10 MG ORAL (10:42)
[2016-06-19] MEDS ORDERED: DIGOXIN250 MCG ORAL (10:42)
[2016-06-19] MEDS ORDERED: CARVEDILOL25 MG ORAL (10:44)
--- NOTE | 2016-06-19 16:27 | Cardiac Electrophysiology PN ---
Assessment/Plan Assessment/Plan 1. Atrial fibrillation with rapid ventricular response.Continue Dig 0.25 daily, Coreg 25 mg b.i.d. and Xarelto 20 for anticoagulation . 2. Congestive heart failure due to diastolic dysfunction with Nl EF. Coreg and Lasix 40 mg daily 3. Hypertension. On coreg and lasix Coreg DW RN. Subjective Subjective alert in NAD. Atrial fib rate is better. No chest pain or SOB.Awaiting DC today. Objective Last 24 Hour Vital Signs Date Time Temp Pulse Resp B/P Pulse Ox O2 Delivery O2 Flow Rate FiO2 06/19/16 09:39 18 141/88 95 Nasal Cannula 06/19/16 08:38 84 06/19/16 08:37 86 151/105 06/19/16 08:33 84 20 Nasal Cannula 2.0 28 06/19/16 08:33 99 Nasal Cannula 2.0 28 06/19/16 08:33 Nasal Cannula 2.0 28 06/19/16 08:00 97.7 86 20 151/105 98 Nasal Cannula 2.0 06/19/16 08:00 87 06/19/16 04:07 97.9 59 18 131/66 98 Nasal Cannula 2.0 06/19/16 04:00 85 06/19/16 00:12 97.4 76 19 142/89 95 Room Air 06/19/16 00:00 80 06/18/16 22:00 97.9 06/18/16 21:13 98 132/94 06/18/16 20:00 86 06/18/16 20:00 97.9 98 21 132/94 100 Nasal Cannula 4.0 06/18/16 19:30 Nasal Cannula 2.0 28 06/18/16 19:29 100 Nasal Cannula 2.0 28 06/18/16 19:27 98 20 Nasal Cannula 2.0 28 Intake and Output 06/18/16 06/19/16 19:00 07:00 Intake Total 490 ml Output Total 1300 ml 800 ml Balance -810 ml -800 ml Intake Oral 490 ml Output Urine Total 1300 ml 800 ml # Bowel Movements 1 Labs Test 06/18/16 05:40 White Blood Count 3.5 K/UL (4.8-10.8) Red Blood Count 4.72 M/UL (4.20-5.40) Hemoglobin 11.8 G/DL (12.0-16.0) Hematocrit 37.8 % (37.0-47.0) Mean Corpuscular Volume 80 FL (80-99) Mean Corpuscular Hemoglobin 25.1 PG (27.0-31.0) Mean Corpuscular Hemoglobin Concent 31.3 G/DL (32.0-36.0) Red Cell Distribution Width 17.4 % (11.6-14.8) Platelet Count 206 K/UL (150-450) Mean Platelet Volume 8.2 FL (6.5-10.1) Neutrophils (%) (Auto) 44.5 % (45.0-75.0) Lymphocytes (%) (Auto) 37.8 % (20.0-45.0) Monocytes (%) (Auto) 12.2 % (1.0-10.0) Eosinophils (%) (Auto) 4.2 % (0.0-3.0) Basophils (%) (Auto) 1.3 % (0.0-2.0) Sodium Level 138 mEQ/L (135-145) Potassium Level 4.0 mEQ/L (3.4-4.9) Chloride Level 98 mEQ/L (98-107) Carbon Dioxide Level 30 mEQ/L (20-30) Anion Gap 10 (5-15) Blood Urea Nitrogen 11 mg/dL (7-23) Creatinine 1.0 mg/dL (0.5-0.9) Estimat Glomerular Filtration Rate 56.8 mL/min (>60) Glucose Level 85 mg/dL (74-106) Calcium Level 8.5 mg/dL (8.6-10.2) Pro-B-Type Natriuretic Peptide 1336 pg/mL (0-125) Objective HEENT: no JVD. LUNGS: Clear. CARDIOVASCULAR: Irregular S1 and S2 with no gallop or murmur. ABDOMEN: Soft. EXTREMITIES: No pitting edema. LARS MARSHALL Jun 19, 2016 16:27
--- NOTE | 2016-06-21 12:50 | Discharge Summary ---
Discharge Summary Hospital Course Date of Admission Jun 15, 2016 at 01:05 Date of Discharge Jun 19, 2016 at 12:06 Admitting Diagnosis atrial fibrillarion with rapid ventricular r, chf Reason for Hospitalization: A fib with RVR HPI Kevon Bello is a 60 year old female who was admitted on Jun 15, 2016 at 01:05 for SOB, palpitations, chest pain denies syncopal or presyncopal episode on tele with atrial fibrillation With rapid ventricular response, underlying hx of A fib cardio consulted troponin x 2 negative, r/o for [place] Chest pain with palpitations likely 2 to AFib with RVR, resolved when rate controlled rate control with Digoxin ( initially 0.25 mg IV Digoxin) and BB ( Coreg), dose increased, -controlled anticoagulation with Xarelto BP management with BB, stable ECHO with preserved EF, moderate TR and MR, CHF due to diastolic dysfunction as per cardio continue Lasix renal parameters, lytes were monitored volumes were monitored O2, HHN prn pain management cardio cleared for dc dc home fup with PMD Consultations cardio - dr Bowden [facility] Hospital Course ECHO: Technically difficult study due to poor acoustic windows and patient weight. POOR ENDOCARDIAL DEFINITION PRECLUDES ASSESSMENT OF WALL MOTION ABNROMALITY. Left ventricular ejection fraction estimated to be 60 %. Mild concentric left ventricular hypertrophy. Moderate left atrial enlargment. All right cardiac chamber sizes are within normal limits. MODERATE focal aortic valve sclerosis with adequate cusp excursion Mildy thickened mitral valve leaflets with normal excursion. Mild mitral annulus and aortic root calcification. Pulmonic valve not well visualized. Normal tricuspid valve structure. IVC dilated at 2.3cm with physiologic collapse. RAP 10mmHg. A color flow and spectral Doppler study was performed and revealed: No aortic regurgitation. Peak aortic valve gradient of 10mmHg and a mean of 7mmHg. Moderate mitral regurgitation. Mitral inflow velocities not indicated. Moderate tricuspid regurgitation. Tricuspid systolic velocities suggests peak right ventricular systolic pressure of 38 mmHg. Trace pulmonic regurgitation present. Discharge Medications Continued Medications: Atorvastatin (Lipitor) 80 Mg Tablet 20 MG ORAL BEDTIME, #30 TAB 0 Refills Carvedilol* (Carvedilol*) 25 Mg Tablet 25 MG ORAL EVERY 12 HOURS, TAB Clonidine Hcl* (Catapres*) 0.1 Mg Tablet 0.1 MG ORAL TWICE A DAY PRN for For High Blood Pressure, TAB Digoxin* (Digoxin*) 250 Mcg Tablet 0.25 MG ORAL DAILY, TAB Furosemide* (Lasix*) 20 Mg Tablet 20 MG ORAL DAILY, TAB Rivaroxaban (Xarelto*) 10 Mg Tablet 20 MG ORAL DAILY, #30 TAB 0 Refills Discontinued Medications: Carvedilol* (Carvedilol*) 3.125 Mg Tablet 3.125 MG ORAL EVERY 12 HOURS, TAB Digoxin* (Digoxin*) 0.25 Mg/5 Ml Solution 0.25 MG GT DAILY, ML Metoprolol Tartrate* (Metoprolol Tartrate*) 100 Mg Tablet 100 MG ORAL EVERY 12 HOURS, TAB Discharge Condition Upon Discharge: improving, stable Discharge Disposition Patient was discharged to Home (01) Discharge Diagnoses: (1) Atrial fibrillation with RVR (2) Diastolic CHF due to valvular disease (3) HTN (hypertension) (4) Tricuspid regurgitation (5) Mitral regurgitation (6) Atypical chest pain Discharge Instructions Discharge Instructions Follow up with: PMD Call MD/Return to Hospital if: palpitations, chest pain, SOB, leg edema Diet: cardiac 2 GM Na, low fat Activity: resume normal activities, as tolerated Pneumonia Vaccine: pt rcvd vaccine prior to this visit Influenza Vaccine (Mar to Aug): pt rcvd vaccine prior to this visit Special Instructions I have been assigned to complete a D/C Summary on this account. I was not involved in the patient management Sarah Beth Hernandez NP ([place]) Jun 21, 2016 12:50
== END 2016-06-19 12:06 | disposition home or self-care (01) | DRG 201 ==
LOC: EDBD 22:58 → EMR 23:52 → 2W 06-15 01:05 → EDBEDREQ 06-15 06:57 → 2E 06-17 06:24
DX: I48.0 Paroxysmal atrial fibrillation (principal); I50.30 Unspecified diastolic (congestive) heart failure; I10 Essential (primary) hypertension; I08.1 Rheumatic disorders of both mitral and tricuspid valves; R07.89 Other chest pain; Z79.01 Long term (current) use of anticoagulants
CPT/HCPCS: 36415; 71010; 80048; 80053; 80061; 80162; 82550; 82553; 83735; 83880; 84439; 84443; 84484; 85025; 93005; 93306; 94640; 94664; 94760; J7620